=== PATIENT | female | born 1985 | race Caucasian/White ===

== ENCOUNTER 2022-07-12 14:31 | Emergency (ER) | payer SELFPAY ==
[~2022-07-12] VITALS: Ht 162.6 cm; Wt 54.4 kg
--- NOTE | 2022-07-12 16:34 | NUR ---
Pt has a superficial 4 inch cut going up from her wrist to her forearm. Which she said she did last monday when she was feeling suicidal.
[2022-07-12 16:55] LABS: BASOPHILS # (AUTO) 0.1 X10'3 (0-0.2); BASOPHILS % (AUTO) 0.7 % (0-1); EOSINOPHILS # (AUTO) 0.1 X10'3 (0-0.9); EOSINOPHILS % (AUTO) 0.8 % (0-6); HEMATOCRIT 38.3 % (35.0-45.0); HEMOGLOBIN 12.8 g/dl (12.0-16.0); LYMPHOCYTES # (AUTO) 2.7 X10'3 (1.1-4.8); LYMPHOCYTES % (AUTO) 36.1 % (21-51); MEAN CORPUSCULAR HEMOGLOBIN 29.3 PG (27.0-31.0); MEAN CORPUSCULAR HGB CONC 33.3 g/dL (33.0-36.5); MEAN CORPUSCULAR VOLUME 87.9 FL (78-98); MEAN PLATELET VOLUME 8.4 FL (7.4-10.4); MONOCYTES # (AUTO) 0.4 X10'3 (0-0.9); MONOCYTES % (AUTO) 5.7 % (2-12); NEUTROPHILS # (AUTO) 4.3 X10'3 (1.8-7.7); NEUTROPHILS % (AUTO) 56.7 % (42-75); PLATELET COUNT 367 X10'3 (140-440); RED BLOOD COUNT 4.36 X10'6 (4.20-5.60); RED CELL DISTRIBUTION WIDTH 15.3 % (11.5-14.5); WHITE BLOOD COUNT 7.6 X10'3 (4.5-11.0)
--- NOTE | 2022-07-12 16:59 | NUR ---
meal tray ordered
[2022-07-12 17:06] LABS: ALANINE AMINOTRANSFERASE 14 U/L (12-78); ALBUMIN 3.8 G/DL (3.4-5.0); ALBUMIN/GLOBULIN RATIO 1.1 (1.1-1.5); ALKALINE PHOSPHATASE 65 IU/L (46-116); ANION GAP 7 (8-16); ASPARTATE AMINO TRANSFERASE 16 U/L (10-37); BILIRUBIN,TOTAL 0.4 MG/DL (0.1-1.0); BLOOD UREA NITROGEN 8 MG/DL (7-18); BUN/CREATININE RATIO 12.9 (6.6-38.0); CHLORIDE 103 MMOL/L (99-107); CREATININE 0.62 MG/DL (0.40-0.90); GLUCOSE 85 MG/DL (70-104); POTASSIUM 3.9 MMOL/L (3.5-5.1); SODIUM 140 MMOL/L (135-145); TOTAL CARBON DIOXIDE 29.8 MMOL/L (24-32); TOTAL PROTEIN 7.3 G/DL (6.4-8.2); eGFR > 90 ML/MIN
[2022-07-12 17:15] LABS: ETHANOL < 0.010 GM/DL (0.0-0.010)
--- NOTE | 2022-07-12 18:40 | NUR ---
[facility] [employer]TACT ([employer] IN [employer])
[2022-07-12 20:16] LABS: URINE HCG NEGATIVE (NEG)
[2022-07-12 20:17] LABS: CLARITY,URINE SLIGHTLY CLOUDY (Clear); COLOR,URINE YELLOW (Yellow); GLUCOSE, URINE NEGATIVE (Neg); KETONES,URINE NEGATIVE (Neg); LEUKOCYTE ESTERASE ,URINE NEGATIVE (Neg); NITRITES, URINE NEGATIVE (Neg); OCCULT BLOOD,URINE NEGATIVE (Neg); PH,URINE 5.5 (4.8-8.0); PROTEIN,URINE TRACE mg/dl (Neg); UROBILINOGEN,URINE 0.2 E.U/dL (0.2-1.0)
[2022-07-12 20:25] LABS: UA COLLECTION TYPE CLN CATCH MIDSTREAM
[2022-07-12 20:27] LABS: MUCUS STRANDS MANY /LPF (Neg); SQUAMOUS EPITHELIAL CELL,UR MANY /LPF (FEW); WBC,URINE 0-4 /HPF (0-4)
[2022-07-12 20:28] LABS: BACTERIA,URINE 1+ /HPF (Neg); RBC,URINE 20-50 /HPF (0-2)
[2022-07-12 20:30] LABS: URINE AMPHETAMINE SCREEN POSITIVE (Neg); URINE BARBITUATE SCREEN NEGATIVE (Neg); URINE BENZODIAZEPINES SCREEN NEGATIVE (Neg); URINE CANNABINOID SCREEN POSITIVE (Neg); URINE COCAINE SCREEN NEGATIVE (Neg); URINE METHADONE SCREEN NEGATIVE (Neg); URINE OPIATE SCREEN NEGATIVE (Neg); URINE PHENCYCLIDINE SCREEN NEGATIVE (Neg)
[2022-07-12] MEDS ORDERED: Melatonin 3mg tablet PO SCH (20:50)
--- NOTE | 2022-07-12 20:51 | NUR ---
The patient moved to bed 21 in the ER overflow. She was emotional and tearful. She stated that she started to have suicidal thoughts on Monday and at that time left her home and has been staying with her brother. She was encouraged to come to the ER for a mental health assessment. She denies psychotic symptoms. She reports she relapsed on meth after having an arguement with her .
[2022-07-12] MEDS ORDERED: NO HOME MEDS (21:07)
--- NOTE | 2022-07-12 21:58 | NUR ---
The patient appears to be sleeping
--- NOTE | 2022-07-12 21:58 | NUR ---
PACKET SENT TO [facility]
--- NOTE | 2022-07-13 00:22 | NUR ---
The patient appears to be sleeping
--- NOTE | 2022-07-13 02:05 | NUR ---
The patient appears to be sleeping
--- NOTE | 2022-07-13 04:23 | NUR ---
The patient appears to be sleeping
--- NOTE | 2022-07-13 05:21 | NUR ---
The patient appears to be sleeping
--- NOTE | 2022-07-13 06:30 | NUR ---
Pt is lying in bed on her left side, she appears to be sleeping.
--- NOTE | 2022-07-13 07:09 | NUR ---
Pt up to use the bathroom.
--- NOTE | 2022-07-13 07:50 | NUR ---
came to ER, wishing to visit with pt after 0800. Pt was not up to a visit from her at this time.
--- NOTE | 2022-07-13 08:10 | NUR ---
Pt's called asking to speak with her. Pt did not wish to speak with at this time.
--- NOTE | 2022-07-13 08:56 | NUR ---
Ranjeet from [facility] at bedside evaluating the pt.
--- NOTE | 2022-07-13 09:37 | NUR ---
Pt denies SI. Pt wishes to leave her and go live at her brother's.
--- NOTE | 2022-07-13 10:01 | NUR ---
Pt requested the phone to call her sister in law.
--- NOTE | 2022-07-13 11:13 | NUR ---
Pt's brother and sister in law at bedside visiting.
--- NOTE | 2022-07-13 11:21 | NUR ---
Pt is not being placed on a mental health hold. Pt will be discharged home with brother.
--- NOTE | 2022-07-13 11:50 | NUR ---
Pt discharged home with brother and sister in law. Pt ambulated off the unit accompanied by family and this RN. All belongings returned.
[2022-07-13 11:56] VITALS: BP 90/56
== END 2022-07-13 11:50 | disposition home or self-care (01) ==
LOC: ER 14:32
DX: F32.A Depression, unspecified (principal); Z20.822 Contact with and (suspected) exposure to COVID-19; R45.851 Suicidal ideations; F17.200 Nicotine dependence, unspecified, uncomplicated
CPT/HCPCS: 36415; 80053; 80305; 80320; 81001; 81025; 84443; 85025; 87811; 99283; 99285